=== PATIENT | male | born 1945 | race Caucasian/White ===

== ENCOUNTER 2023-08-22 14:04 | Outpatient (OUT) | payer MEDICARE, OTHER, SELFPAY | END 2023-08-22 14:05 | disposition home or self-care (01) | LOC: CARD 14:07 | PROVIDERS: Family Provider Family Medicine | DX: I49.9 Cardiac arrhythmia, unspecified (principal); I50.31 Acute diastolic (congestive) heart failure; I27.20 Pulmonary hypertension, unspecified; I48.91 Unspecified atrial fibrillation | CPT/HCPCS: 93270 ==